=== PATIENT | female | born 1975 | race Two or more races ===

== ENCOUNTER → 2023-01-15 10:09 | Outpatient (BNVA) | payer OTHER, SELFPAY | PROVIDERS: PCP Internal Medicine; Visit Provider Internal Medicine Rheumatology | DX: I73.00 Raynaud's syndrome without gangrene (principal); R76.8 Other specified abnormal immunological findings in serum; D50.9 Iron deficiency anemia, unspecified | CPT/HCPCS: 99202 ==

== ENCOUNTER 2023-01-15 11:34 | Outpatient (REF) | payer OTHER, SELFPAY ==
[2023-01-15 14:12] LABS: MANUAL DIFF FLAG NO
[2023-01-15 14:21] LABS: Basophils Percent Auto 0.6 % (0-2); Eosinophils Absolute Auto 0.2 X10*3/uL (0.0-0.4); Hemoglobin 11.9 g/dl (12.0-16.0); Imm Gran Abs Auto 0.01 X10*3/uL (0.00-0.03); Imm Gran Pct Auto 0.2 % (0.0-0.4); Lymphocytes Absolute Auto 2.3 X10*3/uL (1.2-4.9); Lymphocytes Percent Auto 35.6 % (20-40); Mean Corpuscular HGB Conc 31.3 g/dl (31.0-35.0); Mean Corpuscular Hemoglobin 25.5 pg (27.0-33.0); Mean Corpuscular Volume 81.4 fL (80.0-98.0); Monocytes Absolute Auto 0.7 X10*3/uL (0.1-1.2); Monocytes Percent Auto 10.7 % (2-11); Neutrophils Absolute Auto 3.2 x10*3/uL (2.0-8.3); Neutrophils Percent Auto 49.9 % (45-73); Platelet Count 355 X10*3/uL (160-400); Red Blood Count 4.67 X10*6/uL (4.20-5.50); Red Cell Distribution Width 15.5 % (11.0-16.0); White Blood Count 6.4 X10*3/uL (4.8-10.8)
[2023-01-15 14:43] LABS: C Reactive Protein 0.17 mg/dL (< or = 0.50); Iron 95 mcg/dL (30-160); Percent Iron Saturation 24 % (15-50); Total Iron Binding Capacity 401 mcg/dL (228-428); Unsaturated Iron Binding 306 ug/dL
[2023-01-15 15:04] LABS: Creatinine Urine 306.33 mg/dL; Protein/Creatinine Ratio, Ur 0.05 (<0.2); Total Protein Urine Random 15 mg/dL (<12)
[2023-01-15 15:04] LABS: Erythrocyte Sedimentation Rate 16 MM/HR (0-20)
[2023-01-16 16:24] LABS: Complement C3 139 mg/dL (83-193)
[2023-01-16 18:18] LABS: Anti DNA DS Antibody 2 IU/mL; Anti-Centromere B Antibodies <1.0 NEG AI (<1.0 NEG); SM/Ribonucleoprotein Ab <1.0 NEG AI (<1.0 NEG); Scleroderma 70 Antibody <1.0 NEG AI (<1.0 NEG); Smith Protein <1.0 NEG AI (<1.0 NEG)
== END 2023-01-15 11:35 | disposition home or self-care (01) ==
LOC: HO.10HDL 11:34
PROVIDERS: Visit Provider Internal Medicine Rheumatology
DX: I73.00 Raynaud's syndrome without gangrene (principal); D50.9 Iron deficiency anemia, unspecified; R76.8 Other specified abnormal immunological findings in serum
CPT/HCPCS: 36415; 83540; 84156; 85025; 85652; 86140; 86160; 86225; 86235